=== PATIENT | male | born 1960 | race African-American/Black ===

== ENCOUNTER 2018-11-09 06:38 | Inpatient (IN) | payer MEDICARE, MEDICAID ==
[~2018-11-09] VITALS: Ht 162.6 cm; Wt 109.8 kg
[2018-11-09] MEDS ORDERED: FUROSEMIDE 40MG/4ML VIAL IVP ONE (08:15)
[2018-11-09 08:28] LABS: HEMATOCRIT. 43.8 % (42.0-52.0); HEMOGLOBIN. 14.5 g/dL (14.0-18.0); MEAN CORPUSCULAR HEMOGLOBIN 28.4 pg (28.0-32.0); MEAN CORPUSCULAR VOLUME 85.7 fL (80.0-94.0); MEAN PLATELET VOLUME 7.3 fl (7.4-10.4); PLATELET 278 x1000/uL (130-400); RED BLOOD CELL COUNT 5.11 mill/uL (4.7-6.1); RED CELL DISTRIBUTION WIDTH 14.6 % (11.6-14.6)
[2018-11-09 08:33] LABS: CHLORIDE 106 mEq/L (98-107)
[2018-11-09 08:49] LABS: PLATELET ESTIMATE NORMAL
[2018-11-09] MEDS ORDERED: IOHEXOL-300 100 ML BOTTLE ONE (09:15)
[2018-11-09] MEDS ORDERED: NA PHOS,M-B/NA PHOS,DI-BA ENEMA 118ML PR PRN (10:30)
[2018-11-09] MEDS ORDERED: ACETAMINOPHEN 650MG/20.3ML UDC GT PRN (10:30)
[2018-11-09] MEDS ORDERED: ACETAMINOPHEN 325MG TABLET PO PRN (10:30)
[2018-11-09] MEDS ORDERED: MAGNESIUM/ALUMINUM HYDROXIDE/SIMETHICONE 30ML UDC PO PRN (10:30)
[2018-11-09] MEDS ORDERED: ACETAMINOPHEN 650MG SUPP PR PRN (10:30)
[2018-11-09] MEDS ORDERED: IPRATROPIUM/ALBUTEROL 0.5-3(2.5)MG/3ML NEB INH PRN (10:30)
[2018-11-09] MEDS ORDERED: HYDROCODONE/ACETAMINOPHEN 5/325MG TABLET PO PRN (10:30)
[2018-11-09] MEDS ORDERED: DEXTROSE 50% WATER 50ML SYRINGE IV PRN (10:30)
[2018-11-09] MEDS ORDERED: DIPHENHYDRAMINE 50MG/ML VIAL IV PRN (10:30)
[2018-11-09] MEDS ORDERED: CLONIDINE 0.1MG TABLET PO PRN (10:30)
[2018-11-09 10:38] LABS: CLARITY URINE CLEAR (CLEAR); COLOR URINE YELLOW (YELLOW); KETONES URINE NEGATIVE (NEGATIVE); LEUKOCYTE ESTERASE URINE NEGATIVE (NEGATIVE); NITRITE URINE NEGATIVE (NEGATIVE); OCCULT BLOOD URINE TRACE (NEGATIVE); PROTEIN URINE NEGATIVE (NEGATIVE); SPECIFIC GRAVITY URINE 1.015 (1.005-1.030); UROBILINOGEN URINE 0.2 E.U./dL (0.2-1.0)
[2018-11-09 10:48] LABS: *AMPHETAMINES SCREEN URINE NEGATIVE (NEGATIVE); *BARBITURATES SCREEN URINE NEGATIVE (NEGATIVE)
[2018-11-09 10:49] LABS: *BENZODIAZEPINES SCREEN URINE NEGATIVE (NEGATIVE); *COCAINE SCREEN URINE NEGATIVE (NEGATIVE); CANNABINOID URINE SCREEN NEGATIVE (NEGATIVE); METHADONE URINE SCREEN NEGATIVE (NEGATIVE); OPIATES URINE SCREEN NEGATIVE (NEGATIVE); PHENCYCLIDINE URINE SCREEN NEGATIVE (NEGATIVE)
[2018-11-09] MEDS: DEXT 5%/0.45% NACL 1000ML 1,000 ML IV SCH (12:26)
[2018-11-09] MEDS: BLOOD SUGAR DIAGNOSTIC STRIP TEST SCH ×3 (13:11→21:00)
[2018-11-09] MEDS: INSULIN LISPRO 100 UNITS/ML SUBCUT SCH ×2 (13:20→21:00)
[2018-11-09] MEDS: SODIUM CHLORIDE 0.9% INJ 3ML FLUSH IVF SCH ×2 (14:00→22:02)
[2018-11-09] MEDS ORDERED: MAGNESIUM CITRATE 300ML SOLUTION PO NR (14:30)
[2018-11-09] MEDS: FAMOTIDINE 20MG/2ML VIAL IV SCH (17:15)
[2018-11-09 18:00] VITALS: BP 165/85
[2018-11-09] MEDS ORDERED: KETOROLAC 30MG/ML VIAL IV NR (18:30)
[2018-11-09 20:00] VITALS: BP 138/95
[2018-11-09] MEDS ORDERED: SODIUM CHLORIDE 45ML SPRAY NS PRN (20:00)
[2018-11-09 20:10] VITALS: BP 138/95
[2018-11-09] MEDS: OXYMETAZOLINE HCL NASAL SPRAY 15ML BOTHNSTRLS SCH (22:02)
[2018-11-09] MEDS: FLUTICASONE PROPIONATE 50MCG/SPRAY BOTTLE BOTHNSTRLS SCH (22:02)
[2018-11-09] MEDS: SUCRALFATE 1 G/10 ML UDC PO SCH (22:03)
[2018-11-09] MEDS: CEFTRIAXONE 1 G PREMIX 50 ML IV SCH (22:03)
[2018-11-10] VITALS: BP 134/78
[2018-11-10 04:00] VITALS: BP 111/55
[2018-11-10] MEDS: SUCRALFATE 1 G/10 ML UDC PO SCH ×4 (05:37→21:02)
[2018-11-10] MEDS: DEXT 5%/0.45% NACL 1000ML 1,000 ML IV SCH ×3 (05:38→17:43)
[2018-11-10] MEDS: SODIUM CHLORIDE 0.9% INJ 3ML FLUSH IVF SCH ×3 (05:38→21:02)
[2018-11-10] MEDS: FAMOTIDINE 20MG/2ML VIAL IV SCH ×2 (05:39→17:20)
[2018-11-10] MEDS: PROMETHAZINE/DEXTROMETHORPHAN 6.25-15MG/5ML BOTTLE 120ML PO PRN (05:40)
[2018-11-10] MEDS: BLOOD SUGAR DIAGNOSTIC STRIP TEST SCH ×4 (06:45→20:35)
[2018-11-10 06:55] LABS: HEMATOCRIT. 42.1 % (42.0-52.0); HEMOGLOBIN. 13.7 g/dL (14.0-18.0); MEAN CORPUSCULAR HEMOGLOBIN 27.8 pg (28.0-32.0); MEAN CORPUSCULAR VOLUME 85.6 fL (80.0-94.0); MEAN PLATELET VOLUME 7.5 fl (7.4-10.4); PLATELET 258 x1000/uL (130-400); RED BLOOD CELL COUNT 4.92 mill/uL (4.7-6.1); RED CELL DISTRIBUTION WIDTH 14.4 % (11.6-14.6)
[2018-11-10 07:16] LABS: CHLORIDE 101 mEq/L (98-107)
[2018-11-10 07:31] LABS: LDL CHOLESTEROL 77 mg/dL (5-100)
[2018-11-10 07:34] LABS: HDL CHOLESTEROL 34 mg/dL (40-59)
[2018-11-10 08:00] VITALS: BP 106/63
[2018-11-10] MEDS: FLUTICASONE PROPIONATE 50MCG/SPRAY BOTTLE BOTHNSTRLS SCH (08:42)
[2018-11-10] MEDS: OXYMETAZOLINE HCL NASAL SPRAY 15ML BOTHNSTRLS SCH ×2 (08:42→21:02)
[2018-11-10] MEDS: INSULIN LISPRO 100 UNITS/ML SUBCUT SCH ×4 (08:47→21:27)
[2018-11-10 12:00] VITALS: BP 115/64
[2018-11-10 12:48] LABS: PLATELET ESTIMATE NORMAL
[2018-11-10 16:00] VITALS: BP 130/75
[2018-11-10 20:42] VITALS: BP 136/61
[2018-11-10] MEDS: CEFTRIAXONE 1 G PREMIX 50 ML IV SCH (21:02)
[2018-11-11] VITALS: BP 131/58
[2018-11-11] MEDS: DEXT 5%/0.45% NACL 1000ML 1,000 ML IV SCH (02:30)
[2018-11-11 04:00] VITALS: BP 118/69
[2018-11-11] MEDS: FAMOTIDINE 20MG/2ML VIAL IV SCH (06:26)
[2018-11-11] MEDS: SUCRALFATE 1 G/10 ML UDC PO SCH ×2 (06:26→13:19)
[2018-11-11] MEDS: BLOOD SUGAR DIAGNOSTIC STRIP TEST SCH ×2 (06:26→12:20)
[2018-11-11] MEDS: SODIUM CHLORIDE 0.9% INJ 3ML FLUSH IVF SCH ×2 (06:26→13:21)
[2018-11-11] MEDS: INSULIN LISPRO 100 UNITS/ML SUBCUT SCH ×2 (07:50→13:45)
[2018-11-11 08:00] VITALS: BP 122/61
[2018-11-11] MEDS: FLUTICASONE PROPIONATE 50MCG/SPRAY BOTTLE BOTHNSTRLS SCH (11:22)
[2018-11-11] MEDS: OXYMETAZOLINE HCL NASAL SPRAY 15ML BOTHNSTRLS SCH (11:23)
[2018-11-11 12:00] VITALS: BP 127/66
[2018-11-11] MEDS: PROMETHAZINE/DEXTROMETHORPHAN 6.25-15MG/5ML BOTTLE 120ML PO PRN (13:19)
[2018-11-11] MEDS ORDERED: DOCUSATE SODIUM 250MG CAPSULE PO PRN (14:00)
[2018-11-11 15:19] VITALS: BP 127/66
[2018-11-11 16:07] VITALS: BP 125/53
== END 2018-11-11 17:17 | disposition home or self-care (01) | DRG 438 ==
LOC: ER 06:38 → 6WST 09:45 → EDBEDREQTM 09:47 → EDBEDREQ 09:47 → ENRESERV 16:40
PROVIDERS: ADMIT Family Medicine; ATTEND Family Medicine
DX: K85.90 Acute pancreatitis without necrosis or infection, unspecified (principal); J96.90 Respiratory failure, unspecified, unspecified whether with hypoxia or hypercapnia; J44.1 Chronic obstructive pulmonary disease with (acute) exacerbation; E11.9 Type 2 diabetes mellitus without complications; J00 Acute nasopharyngitis [common cold]; K56.41 Fecal impaction; E87.70 Fluid overload, unspecified; E78.5 Hyperlipidemia, unspecified; G47.33 Obstructive sleep apnea (adult) (pediatric); I25.10 Atherosclerotic heart disease of native coronary artery without angina pectoris; I10 Essential (primary) hypertension; K21.9 Gastro-esophageal reflux disease without esophagitis; K57.90 Diverticulosis of intestine, part unspecified, without perforation or abscess without bleeding; K76.0 Fatty (change of) liver, not elsewhere classified; E66.01 Morbid (severe) obesity due to excess calories
CPT/HCPCS: 36415; 71045; 74177; 76700; 80061; 80305; 82962; 83605; 83880; 84484; 85379; 93005; 93306; 96365; 96375; 99285; J0696; J1815; J1885; J1940; J3490; Q9967

== ENCOUNTER 2025-04-16 12:41 | Emergency (ER) | payer MEDICARE, MEDICAID ==
[~2025-04-16] VITALS: Ht 172.7 cm; Wt 97.0 kg
[2025-04-16 13:46] VITALS: TEMP 36.9; O2SAT 99
[2025-04-16] MEDS: ACETAMINOPHEN 325MG TABLET PO ONE (15:00)
[2025-04-16 15:21] LABS: BASOPHILS % 0.5 % (0.0-2.0); EOSINOPHILS % 0.2 % (0.0-5.0); HEMATOCRIT. 48.8 % (42.0-52.0); HEMOGLOBIN. 15.8 g/dL (14.0-18.0); LYMPHOCYTES % 25.0 % (20.0-50.0); MEAN PLATELET VOLUME 7.6 fl (7.4-10.4); MONOCYTES % 12.1 % (2.0-8.0); NEUTROPHILS % 62.2 % (40.0-76.0); PLATELET 232 x1000/uL (130-400); RED BLOOD CELL COUNT 5.53 mill/uL (4.7-6.1); RED CELL DISTRIBUTION WIDTH 14.3 % (11.6-14.6)
[2025-04-16 15:32] LABS: CREATININE 1.1 mg/dL (0.6-1.3); UREA NITROGEN BLOOD 14 mg/dL (9-23)
[2025-04-16 16:00] LABS: ERYTHROCYTE SEDIMENTATION RATE 7 mm/hr (0-20)
[2025-04-16] MEDS ORDERED: IBUP-1455 MT (16:24)
[2025-04-16 16:35] VITALS: BP 136/97; PULSE 81; RESP 16; O2SAT 100
== END 2025-04-16 16:40 | disposition home or self-care (01) ==
LOC: ER 12:41
DX: M25.561 Pain in right knee (principal); E11.9 Type 2 diabetes mellitus without complications; I11.0 Hypertensive heart disease with heart failure; I50.9 Heart failure, unspecified
CPT/HCPCS: 36415; 73562; 80048; 85025; 85651; 99284